=== PATIENT | female | born 1945 | race Caucasian/White ===

== ENCOUNTER 2017-12-22 07:08 | Outpatient (CLI) | payer MEDICARE, BC | END 2017-12-22 23:59 | disposition home or self-care (01) | LOC: DIABETIC 07:08 | PROVIDERS: ATTEND Specialist | DX: E11.65 Type 2 diabetes mellitus with hyperglycemia (principal) | CPT/HCPCS: G0108 ==

== ENCOUNTER 2018-04-13 04:46 | Outpatient (CLI) | payer MEDICARE, BC | END 2018-04-13 23:59 | disposition home or self-care (01) | LOC: DIABETIC 04:46 | PROVIDERS: ATTEND Specialist | DX: E11.65 Type 2 diabetes mellitus with hyperglycemia (principal) | CPT/HCPCS: G0108 ==

== ENCOUNTER 2019-01-18 00:40 | Outpatient (CLI) | payer MEDICARE, BC | END 2019-01-18 23:59 | disposition home or self-care (01) | LOC: DIABETIC 00:40 | PROVIDERS: ATTEND Specialist | DX: E11.9 Type 2 diabetes mellitus without complications (principal); Z71.3 Dietary counseling and surveillance | CPT/HCPCS: G0108 ==

== ENCOUNTER 2020-08-27 09:30 | Emergency (ER) | payer MEDICARE, BC ==
[~2020-08-27] VITALS: Ht 160 cm; Wt 69.2 kg
[2020-08-27] MEDS ORDERED: LORazepam 1 MG tablet PO ONE (10:35)
[2020-08-27] MEDS ORDERED: HYDROcodone/acetaminophen 5mg/325mg tablet PO ONE (10:35)
[2020-08-27] MEDS ORDERED: LORA-269 PO (11:10)
[2020-08-27 11:54] VITALS: BP 184/101
== END 2020-08-27 11:28 | disposition home or self-care (01) ==
LOC: ER 09:30
DX: S16.1XXA Strain of muscle, fascia and tendon at neck level, initial encounter (principal); M62.838 Other muscle spasm; M19.90 Unspecified osteoarthritis, unspecified site; Z88.0 Allergy status to penicillin; Z79.899 Other long term (current) drug therapy; X58.XXXA Exposure to other specified factors, initial encounter; Y93.89 Activity, other specified; Y92.89 Other specified places as the place of occurrence of the external cause; Y99.8 Other external cause status
CPT/HCPCS: 72020; 99283

== ENCOUNTER → 2023-09-18 | Outpatient (CLI) | payer MEDICARE, BC ==
[~2023-09-18] MED LIST: LORA-269 PO
[2023-09-18 15:52] LABS: ANION GAP 6 (8-16); CHLORIDE 105 MMOL/L (99-107); POTASSIUM 5.4 MMOL/L (3.5-5.1); SODIUM 137 MMOL/L (135-145); TOTAL CARBON DIOXIDE 25.8 MMOL/L (24-32)
== END | disposition home or self-care (01) ==
LOC: LAB 15:11
PROVIDERS: ATTEND Specialist
DX: E11.65 Type 2 diabetes mellitus with hyperglycemia (principal)
CPT/HCPCS: 36415; 80051